=== PATIENT | female | born 1990 | race Caucasian/White ===

== ENCOUNTER 2017-05-16 18:43 | Emergency (ER) | payer MEDICAID ==
[2017-05-16 19:00] LABS: URINE APPEARANCE CLEAR; URINE BILIRUBIN NEGATIVE (NEGATIVE); URINE BLOOD NEGATIVE (NEGATIVE); URINE COLOR YELLOW; URINE GLUCOSE (UA) NEGATIVE (NEGATIVE); URINE KETONE NEGATIVE (NEGATIVE); URINE LEUKOCYTE ESTERASE TRACE (NEGATIVE); URINE NITRITE NEGATIVE (NEGATIVE); URINE PROTEIN NEGATIVE (NEGATIVE); URINE UROBILINOGEN 0.2 E.U./dL (0.20 - 1.00)
[2017-05-16] MEDS ORDERED: HYOSCYAMINE SULFATE ODT 0.125 MG TAB.SUBL SL ONE (19:00)
[2017-05-16] MEDS ORDERED: MAGNESIUM HYDROXIDE/AL HYDROX 30 ML, LIDOCAINE VISC 2% 200 MG PO ONE ×2 (19:00)
--- NOTE | 2017-05-16 19:05 | Emergency Department Record ---
History of Present Illness - General Chief Complaint: Abdominal Pain Stated Complaint: ABD PAIN Time Seen by Provider: 05/16/17 18:47 Source: Patient Mode of Arrival: Ambulatory Limitations: No limitations - History of Present Illness Initial Comments: 27 yo female presents to ED with a CC of epigastric abdominal pain that began approximately 24 hours ago. Patient reports that her symptoms have been intermittent, denies nausea or vomiting symptoms. Patent reports a history of similar symptoms previously without known etiology. Patient denies fevers, chills, or urinary symptoms. Patient reports that she is s/p rashida and c- section x 2. MD Complaint: Abdominal pain Onset/Timin -: Hour(s) Location: Epigastric, Periumbilical, RUQ Radiation: None Severity: Moderate Quality: Sharp, Stabbing Consistency: Intermittent Improves With: Other Worsens With: Nothing Associated Symptoms: Nausea - Related Data Allergies Allergy/AdvReac Type Severity Reaction Status Date / Time NO KNOWN DRUG ALLERGY Allergy Uncoded 11/28/13 10:05 Travel Screening - Travel/Exposure Within Last 30 Days Have you traveled within the last 30 days?: No - Travel/Exposure Within Last Year Have you traveled outside the [place] in the last year?: No - Additonal Travel Details Have you been exposed to anyone with a communicable illness?: No - Travel Symptoms Symptom Screening: None Review of Systems Constitutional: Denies: Chills, Fever, Malaise, Night sweats Eyes: Denies: Eye discharge, Eye pain ENT: Denies: Congestion, Ear pain, Epistaxis Respiratory: Denies: Cough, Dyspnea Cardiovascular: Denies: Chest pain, Dyspnea on exertion Endocrine: Denies: Fatigue, Heat or cold intolerance Gastrointestinal: Reports: Abdominal pain. Denies: Constipation, Nausea, Vomiting Genitourinary: Denies: Incontinence, Retention Musculoskeletal: Denies: Arthralgia, Back pain, Gout, Joint swelling Skin: Denies: Bruising, Change in color Neurological: Denies: Abnormal gait, Confusion, Headache, Seizure Psychiatric: Denies: Anxiety Hematological/Lymphatic: Denies: Anemia, Blood Clots Past Medical History - SOCIAL HISTORY Smoking Status: Light tobacco smoker (<10/day) Alcohol Use: None Drug Use: None - RESPIRATORY Hx Respiratory Disorders: No - CARDIOVASCULAR Hx Cardio Disorders: No - NEURO Hx Neuro Disorders: No - GI Hx GI Disorders: Yes Hx Reflux: Yes - Hx Genitourinary Disorders: Yes Hx UTI: Yes - ENDOCRINE Hx Endocrine Disorders: No Hx Diabetes: No Hx Thyroid Disease: No - MUSCULOSKELETAL Hx Musculoskeletal Disorders: No - PSYCH Hx Psych Problems: Yes Hx Anxiety: Yes Hx Depression: Yes - HEMATOLOGY/ONCOLOGY Hx Hematology/Oncology Disorders: No Family Medical History Any Significant Family History?: No Hx Cancer: Grandparents Physical Exam - General General Appearance: Alert, Oriented x3, Cooperative, Moderate distress Limitations: No limitations - Head Head exam: Atraumatic, Normocephalic, Normal inspection Head exam detail: negative: Abrasion, Contusion, Cleveland's sign, General tenderness, Hematoma, Laceration - Eye Eye exam: Normal appearance. negative: Conjunctival injection, Periorbital swelling, Periorbital tenderness, Scleral icterus - ENT Ear exam: negative: Auricular hematoma, Auricular trauma Nasal Exam: negative: Active bleeding, Discharge, Dried blood, Foreign body Mouth exam: negative: Drooling, Laceration, Tongue elevation - Neck Neck exam: Normal inspection. negative: Meningismus, Tenderness - Respiratory Respiratory exam: Normal lung sounds bilaterally. negative: Rales, Respiratory distress, Rhonchi, Stridor - Cardiovascular Cardiovascular Exam: Regular rate, Normal rhythm, Normal heart sounds - GI/Abdominal GI/Abdominal exam: Soft, Tenderness (Mild TTP RUQ, no pain to the epigastric or lower quadrants on examination, no rebound or guarding present.). negative: Rebound, Rigid - Rectal Rectal exam: Deferred - exam: Deferred - Extremities Extremities exam: Normal inspection. negative: Calf tenderness, Pedal edema, Tenderness - Back Back exam: Denies: CVA tenderness (R), CVA tenderness (L) - Neurological Neurological exam: Alert, Normal gait, Oriented X3 - Psychiatric Psychiatric exam: Normal affect, Normal mood - Skin Skin exam: Normal color. negative: Abrasion Type of lesion: negative: abrasion Course Vital Signs 05/16/17 05/16/17 18:45 18:52 Temperature 98.4 F Pulse Rate 89 Respiratory 24 Rate Blood Pressure 118/68 [Left Arm] Pulse Ox 96 - Reevaluation(s) Reevaluation #1: 05/16/17 19:38 Laboratory reviewed, WBC 13.5, 3+ Bacteria in the urine. Labs are otherwise grossly unremarkable for an acute process. Patient re-evaluated, reports that her symptoms are not improved following GI cocktail and Levsin, will image for any acute process. Patient agrees with the plan as discussed. Reevaluation #2: 05/16/17 20:50 CT Abdomen and Pelvis: Lymphadenitis in the mesentery with fat stranding in the region of the appendix, appendix is normal in size, no appendocolith or martha- appendicocoele fluid collection is present. Dr Hinton paged for surgical consultation. Reevaluation #3: 05/16/17 21:11 Case was discussed with Dr. Panchal and Dr. Parker, will accept transfer to [facility] ED for surgical evaluation. Medical Decision Making - Lab Data Result diagrams: 05/16/17 19:05 05/16/17 19:05 Disposition Disposition: Transfer Clinical Impression: Epigastric abdominal pain Disposition: Acute Care Hospital Transfer Transfer To: [facility] Reason For Transfer: Surgical evaluation Accepting Physician: Elena Panchal Time Discussed w/Accepting Physician: 21:13 Condition: (2) Stable Forms: Patient Portal Access Time of Disposition: 21:13 Quality - Quality Measures Quality Measures: N/A - Blood Pressure Screening Does Patient Have Any of the Following: No Blood Pressure Classification: Normal BP Reading Systolic Measurement: 114 Diastolic Measurement: 69 Screening for High Blood Pressure: < Normal BP, F/U Not Required > [G8783]
[2017-05-16 19:11] LABS: URINE RBC NONE SEEN (NONE SEEN)
[2017-05-16 19:12] LABS: HCG,QUALITATIVE URINE NEGATIVE (NEGATIVE); URINE BACTERIA 3+
[2017-05-16 19:12] LABS: BASO % 0.2 % (0-6); EOS % 3.1 % (0-6); GRAN % 70.7 % (47-80); HEMATOCRIT 38.6 % (35.0-47.0); LYMPH % 19.5 % (16-45); MEAN CELL VOLUME 86.5 fl (81-97); MEAN CORPUSCULAR HEMOGLOBIN 29.1 pg (27-33); MEAN CORPUSCULAR HGB CONC 33.7 g/dl (32-36); MEAN PLATELET VOLUME 10.2 fl (7.4-10.4); MONO % 6.5 % (0-9); PLATELET COUNT 261 K/uL (130-400); RED BLOOD COUNT 4.46 M/uL (3.80-5.40); RED CELL DISTRIBUTION WIDTH 13.1 % (11.5-14.5); WHITE BLOOD COUNT W/O DIFF 13.5 K/uL (4.2-12.2)
[2017-05-16 19:31] LABS: ALB/GLOB RATIO 1.5 (1.1-1.8); ALBUMIN 4.3 g/dL (4.0-5.0); ALKALINE PHOSPHATASE 61 U/L (35-104); ALT/SGPT 22 U/L (<33); AST/SGOT 22 U/L (10.0-35.0); BLOOD UREA NITROGEN 15 mg/dL (6-20); CREATININE 0.6 mg/dL (0.5-0.9); EST GLOMERULAR FILTRATION RATE > 60 mL/min; GLUCOSE,RANDOM 139 mg/dL (74-109); LIPASE 25 U/L (13-60); TOTAL PROTEIN 7.1 g/dL (6.6-8.7)
[2017-05-16] MEDS ORDERED: KETOROLAC 30 MG/ML VIAL IVP ONE (19:43)
--- NOTE | 2017-05-18 08:16 | CT SCAN REPORT ---
EXAM: CT SCAN OF THE ABDOMEN AND PELVIS HISTORY: GENERALIZED ABDOMINAL PAIN. TECHNIQUE: Serial axial CT scan of the abdomen and pelvis was performed at 3.75 mm intervals from the dome of the diaphragm down to the pubic symphysis following the intravenous administration of 100 ml of Omnipaque 300. Comparison: CT scan of the abdomen and pelvis dated 10/26/13 is provided. FINDINGS: The lung windows of the lung bases demonstrate no CT evidence of a focal infiltrate or pleural effusion. Calcified granuloma at the left posterior costophrenic angle is stable with respect to the prior CT scan. The visualized heart size and contour is within normal limits. The liver, spleen, pancreas, and bilateral adrenal glands are unremarkable. The gallbladder is not visualized. The contour, caliber, and flow within the abdominal aorta is within normal limits. There is no CT evidence of retroperitoneal lymphadenopathy. Multiple subcentimeter lymph nodes are identified within the mesentery, particularly at the mesenteric root. Subtle mesenteric fat stranding is also noted. These findings may represent lymphadenitis and/or mesenteric panniculitis. Clinical correlation is recommended. The bowel gas pattern is nonobstructive. The appendix is clearly visualized. The contour and size of the appendix appears within normal limits. No obvious periappendiceal fluid collections are identified. There is fat stranding surrounding the appendix, however, this may be related to the generalized fat stranding within the mesentery. Subtle appendicitis cannot be entirely excluded. Clinical correlation is recommended. The urinary bladder and uterus are unremarkable. Bone windows demonstrate no CT evidence of a fracture or dislocation of the visualized osseous structures. IMPRESSION: 1. MULTIPLE PROMINENT LYMPH NODES ARE IDENTIFIED WITHIN THE MESENTERY DISCUSSED ABOVE. DIFFERENTIAL CONSIDERATIONS INCLUDE MESENTERIC PANNICULITIS AND/OR LYMPHADENITIS. CLINICAL CORRELATION IS RECOMMENDED. 2. ALTHOUGH THERE IS FAT STRANDING SURROUNDING THE APPENDIX, THE CONTOUR AND SIZE OF THE APPENDIX APPEAR UNREMARKABLE. THE FAT STRANDING SURROUNDING THE APPENDIX MAY BE RELATED TO THE GENERALIZED MESENTERIC PANNICULITIS AND/OR LYMPHADENITIS, HOWEVER, SUBTLE APPENDICITIS CANNOT BE ENTIRELY EXCLUDED. CLINICAL CORRELATION IS RECOMMENDED. JOB NUMBER: [id number] [facility]
== END 2017-05-16 21:32 | disposition short-term general hospital (02) ==
LOC: ER 18:43
DX: R10.13 Epigastric pain (principal); R11.0 Nausea; R82.71 Bacteriuria
CPT/HCPCS: 99285 ×2; 96374; 83690; 85025; 80053; 81001; 81025; 74177; Q9967; J1980; J1885

== ENCOUNTER 2018-06-15 10:02 | Emergency (ER) | payer MEDICAID ==
--- NOTE | 2018-06-15 10:07 | Emergency Department Record ---
History of Present Illness - General Chief complaint: ENT Stated complaint: SORE THROAT Time Seen by Provider: 06/15/18 10:05 Source: Patient Mode of Arrival: Ambulatory - History of Present Illness Initial comments: Pt relates one week of sore throat, fevers, and body aches. "I feel so tired all the time". No nausea or vomiting. No cough or DONTRELL. No AP or urinary complaints. Seen yesterday at urgent care and had neg strep screen. "The back of my throat and uvula feels like it is burning and swollen". MD complaint: Sore throat Onset/Timin -: Week(s) Location: Throat Severity: Moderate Severity scale (1-10): 6 Quality: Burning Consistency: Constant Associated Symptoms: Fever, Pain with swallowing, Sore throat - Related Data Allergies Allergy/AdvReac Type Severity Reaction Status Date / Time amoxicillin AdvReac uti Unverified 02/18/18 08:46 symptoms Review of Systems Constitutional: Reports: Fever, Malaise. Denies: Chills, Weakness Eyes: Denies: Eye discharge, Eye pain ENT: Reports: Throat pain. Denies: Congestion, Dental pain Respiratory: Denies: Cough, Dyspnea Cardiovascular: Denies: Arrhythmia, Chest pain Endocrine: Denies: Fatigue Gastrointestinal: Denies: Abdominal pain, Nausea, Vomiting Genitourinary: Denies: Abnormal menses Skin: Denies: Bruising, Rash Neurological: Denies: Abnormal gait, Numbness, Tingling Psychiatric: Denies: Anxiety Hematological/Lymphatic: Denies: Anemia Past Medical History - SOCIAL HISTORY Smoking Status: Light tobacco smoker (<10/day) Drug Use: None - RESPIRATORY Hx Respiratory Disorders: No - CARDIOVASCULAR Hx Cardio Disorders: No - NEURO Hx Neuro Disorders: No - GI Hx GI Disorders: Yes Hx Reflux: Yes - Hx Genitourinary Disorders: Yes Hx UTI: Yes - ENDOCRINE Hx Endocrine Disorders: No Hx Diabetes: No Hx Thyroid Disease: No - MUSCULOSKELETAL Hx Musculoskeletal Disorders: No - PSYCH Hx Psych Problems: Yes Hx Anxiety: Yes Hx Depression: Yes - HEMATOLOGY/ONCOLOGY Hx Hematology/Oncology Disorders: No Family Medical History Hx Cancer: Grandparents Physical Exam - General General Appearance: Alert, Oriented x3, Cooperative, Mild distress - Head Head exam: Atraumatic - Eye Eye exam: PERRL, EOMI. negative: Nystagmus - ENT ENT exam: Mucous membranes moist, Normal external ear exam, TM's normal bilaterally Nasal Exam: Normal inspection. negative: Sinus tenderness Mouth exam: negative: Muffled voice, Tongue elevation Teeth exam: Normal inspection Throat exam: Other (post pharynx is erythematous with pettechia and uvula is slightly swollen. Airway is patent. ). negative: R peritonsillar mass, L peritonsillar mass - Neck Neck exam: Normal inspection, Full ROM. negative: Lymphadenopathy - Respiratory Respiratory exam: Normal lung sounds bilaterally. negative: Rhonchi, Wheezes - Cardiovascular Cardiovascular Exam: Regular rate, Normal rhythm, Normal heart sounds - GI/Abdominal GI/Abdominal exam: Soft, Normal bowel sounds. negative: Distended, Guarding, Tenderness - Extremities Extremities exam: Normal inspection, Full ROM. negative: Tenderness - Back Back exam: Reports: Normal inspection - Neurological Neurological exam: Alert, Normal gait, Oriented X3. negative: Motor sensory deficit - Psychiatric Psychiatric exam: Normal affect, Normal mood - Skin Skin exam: Normal color. negative: Rash Course - Reevaluation(s) Reevaluation #1: 06/15/18 10:20 Kids with similar. Neg strep screen yesterday. Will check strep, flu, and mono Medical Decision Making - Lab Data Result diagrams: 06/15/18 10:22 Disposition Disposition: Discharge Clinical Impression: Pharyngitis Disposition: Home, Self-Care Condition: (1) Good Instructions: Pharyngitis (ED) Additional Instructions: Fluids and rest. NO Motrin or non steroidal meds for 4 days. Use tylenol for fever or pain. Return to the ED as needed. Forms: Patient Portal Access Quality - Quality Measures Quality Measures: N/A - Blood Pressure Screening Does Patient Have Any of the Following: No Blood Pressure Classification: Pre-Hypertensive BP Reading Systolic Measurement: 117 Diastolic Measurement: 80 Screening for High Blood Pressure: < Pre-Hypertensive BP, F/U Documented > [ G8950] Pre-Hypertensive Follow-up Interventions: Follow-up with rescreen every year.
[2018-06-15 10:33] LABS: BASO % 0.3 % (0-6); EOS % 3.6 % (0-6); GRAN % 52.7 % (47-80); HEMATOCRIT 39.5 % (35.0-47.0); HEMOGLOBIN 12.8 gm/dl (11.6-16.0); LYMPH % 32.8 % (16-45); MEAN CORPUSCULAR HEMOGLOBIN 29.2 pg (27-33); MEAN CORPUSCULAR HGB CONC 32.4 g/dl (32-36); MEAN PLATELET VOLUME 9.7 fl (7.4-10.4); MONO % 10.6 % (0-9); PLATELET COUNT 273 K/uL (130-400); RED BLOOD COUNT 4.39 M/uL (3.80-5.40); RED CELL DISTRIBUTION WIDTH 13.4 % (11.5-14.5); WHITE BLOOD COUNT W/O DIFF 6.6 K/uL (4.2-12.2)
[2018-06-15 10:37] LABS: STREP A SCREEN NEGATIVE (NEGATIVE)
[2018-06-15 10:44] LABS: INFLUENZA A NEGATIVE (NEGATIVE); INFLUENZA B NEGATIVE (NEGATIVE)
[2018-06-15] MEDS ORDERED: DEXAMETHASONE 4 MG/ML 1ML VIAL PO ONE (10:47)
== END 2018-06-15 11:00 | disposition home or self-care (01) ==
LOC: ER 10:02
DX: J02.9 Acute pharyngitis, unspecified (principal); K13.79 Other lesions of oral mucosa; R51 Headache; F17.210 Nicotine dependence, cigarettes, uncomplicated
CPT/HCPCS: 85027; 86308; 87400; 87880; 99283

== ENCOUNTER 2019-01-03 12:09 | Emergency (ER) | payer MEDICAID ==
[2019-01-03] MEDS ORDERED: ACETAMINOPHEN 1,000 MG/100 ML BTL IVPB ONE (12:34)
--- NOTE | 2019-01-03 12:35 | Emergency Department Record ---
History of Present Illness - General Chief Complaint: Chest Pain Stated Complaint: CHEST PAIN Time Seen by Provider: 01/03/19 12:15 Source: Patient Mode of Arrival: Ambulatory Limitations: No limitations - History of Present Illness Initial Comments: The patient is here due to L upper CP for the last hour. She describes the pain as sharp and stabbing and it is non-radiating. There is no SOB, DONTRELL, sweating, or nausea with the pain. She did feel warm all over when the pain started and she had to go outside and sit on the curb with her head between her legs. Presently the pain is almost gone and the patient states the onset was at rest. She has no hx of similar issues and denies any hx of CP with exertion or DRAPER. The patient's only cardiac risk factor is tobacco use. The patient does state she does a lot of lifting at work and may have pulled a muscle. MD Complaint: Chest pain Onset/Timin -: Minutes(s) Onset: During rest Pain Location: Substernal, Left chest Severity scale (1-10): 4 Quality: Other Consistency: Constant Treatments Prior to Arrival: None - Related Data Home Medications Medication Instructions Recorded Confirmed Last Taken Omeprazole 40 mg PO DAILY 01/03/19 01/03/19 01/03/19 Allergies Allergy/AdvReac Type Severity Reaction Status Date / Time amoxicillin AdvReac uti Verified 01/03/19 12:21 symptoms Travel Screening - Travel/Exposure Within Last 30 Days Have you traveled within the last 30 days?: No - Travel/Exposure Within Last Year Have you traveled outside the [place] in the last year?: No - Additonal Travel Details Have you been exposed to anyone with a communicable illness?: No Review of Systems Constitutional: Denies: Chills, Fever Eyes: Denies: Eye discharge ENT: Denies: Congestion Respiratory: Denies: Dyspnea Cardiovascular: Reports: Chest pain Endocrine: Denies: Fatigue Gastrointestinal: Denies: Nausea Genitourinary: Denies: Dysuria Musculoskeletal: Denies: Arthralgia Neurological: Denies: Abnormal gait Past Medical History - SOCIAL HISTORY Smoking Status: Light tobacco smoker (<10/day) Alcohol Use: Rare Drug Use: None - RESPIRATORY Hx Respiratory Disorders: No - CARDIOVASCULAR Hx Cardio Disorders: No - NEURO Hx Neuro Disorders: No - GI Hx GI Disorders: Yes Hx Reflux: Yes - Hx Genitourinary Disorders: Yes Hx UTI: Yes - ENDOCRINE Hx Endocrine Disorders: No Hx Diabetes: No Hx Thyroid Disease: No - MUSCULOSKELETAL Hx Musculoskeletal Disorders: No - PSYCH Hx Psych Problems: Yes Hx Anxiety: Yes Hx Depression: Yes - HEMATOLOGY/ONCOLOGY Hx Hematology/Oncology Disorders: No Family Medical History Any Significant Family History?: No Hx Cancer: Grandparents Physical Exam - General General Appearance: Alert, Oriented x3, Cooperative, No acute distress - Head Head exam: Atraumatic, Normocephalic, Normal inspection - Eye Eye exam: Normal appearance, PERRL, EOMI - ENT Throat exam: Normal inspection. negative: Tonsillar erythema, Tonsillar exudate - Neck Neck exam: Normal inspection, Full ROM. negative: Tenderness - Respiratory Respiratory exam: Normal lung sounds bilaterally, Chest wall tenderness (The L upper CP is 100% reproducible to palpation of the L upper chest.), Other (The pain is 100% reproducible with any chest rotation or flexion.). negative: Respiratory distress - Cardiovascular Cardiovascular Exam: Regular rate, Normal rhythm, Normal heart sounds - GI/Abdominal GI/Abdominal exam: Soft, Normal bowel sounds, Tenderness (There is mild epigastric tenderness but that has been a chronic issues. The patient has an EGD scheduled in 2 days.). negative: Rebound, Rigid - Extremities Extremities exam: Normal inspection, Full ROM, Normal capillary refill. negative: Tenderness Image of Full Body: 1 - Area of pain and 100% reproducible tenderness. - Back Back exam: Reports: Normal inspection - Neurological Neurological exam: Alert, Normal gait. negative: Abnormal gait, Motor sensory deficit - Psychiatric Psychiatric exam: negative: Anxious Course Vital Signs 01/03/19 12:11 Temperature 97.7 F Pulse Rate 85 Respiratory 18 Rate Blood Pressure 122/81 Pulse Ox 100 - Reevaluation(s) Reevaluation #1: The patient is doing a lot better at this time. She was sleeping in the room when I went in. After waking her up she stated the pain is 90% improved. She still has the pain with any chest flexion or rotation or any chest palpation. I explained to her that is seems she has a pulled muscle over her chest wall and due to her upcoming EGD she is to take Tylenol for pain. 01/03/19 13:34 Medical Decision Making - Data Complexity MDM Data: Labs Ordered and/or Reviewed, X-Ray Ordered and/or Reviewed, EKG Ordered and/or Reviewed - Lab Data Result diagrams: 01/03/19 12:40 01/03/19 12:40 - EKG Data -: EKG Interpreted by Me EKG: No Acute Changes, Normal EKG (RSR" pattern. O/W neg.) - Radiology Data Radiology results: Report reviewed (CXR: Neg for any acute changes.) Disposition Disposition: Discharge Clinical Impression: Chest wall pain Disposition: Home, Self-Care Condition: (2) Stable Instructions: Chest Wall Pain (ED) Additional Instructions: Please continue your regular medicines and use TYlenol for pain. Please see your family doctor for recheck later this week. Return to the ER for any worsening symptoms. Forms: Patient Portal Access Time of Disposition: 13:36 Quality - Quality Measures Quality Measures: N/A - Blood Pressure Screening View Details: Yes Does Patient Have Any of the Following: No Blood Pressure Classification: Pre-Hypertensive BP Reading Systolic Measurement: 122 Diastolic Measurement: 81 Screening for High Blood Pressure: < Pre-Hypertensive BP, F/U Documented > [G8950] Pre-Hypertensive Follow-up Interventions: Referral to alternative/primary care provider.
[2019-01-03] MEDS ORDERED: SUCRALFATE 1 G/10 ML UD PO ONE (12:40)
[2019-01-03 12:50] LABS: ABSOLUTE NEUTROPHIL COUNT 2.11; BASO % 0.4 % (0-6); EOS % 4.7 % (0-6); GRAN % 39.6 % (47-80); HEMATOCRIT 39.4 % (35.0-47.0); HEMOGLOBIN 12.9 gm/dl (11.6-16.0); MEAN CELL VOLUME 92.5 fl (81-97); MEAN CORPUSCULAR HEMOGLOBIN 30.3 pg (27-33); MEAN CORPUSCULAR HGB CONC 32.7 g/dl (32-36); MEAN PLATELET VOLUME 9.9 fl (7.4-10.4); MONO % 10.3 % (0-9); PLATELET COUNT 268 K/uL (130-400); RED BLOOD COUNT 4.26 M/uL (3.80-5.40); RED CELL DISTRIBUTION WIDTH 13.8 % (11.5-14.5); WHITE BLOOD COUNT W/O DIFF 5.3 K/uL (4.2-12.2)
[2019-01-03 13:03] LABS: BLOOD UREA NITROGEN 13 mg/dL (6-20); CREATININE 0.5 mg/dL (0.5-0.9); EST GLOMERULAR FILTRATION RATE > 60 mL/min
[2019-01-03 13:04] LABS: TOTAL PROTEIN 6.8 g/dL (6.6-8.7)
[2019-01-03 13:06] LABS: GLUCOSE,RANDOM 101 mg/dL (74-109)
[2019-01-03 13:09] LABS: ALB/GLOB RATIO 1.8 (1.1-1.8); ALBUMIN 4.4 g/dL (4.0-5.0); ALKALINE PHOSPHATASE 46 U/L (35-104); ALT/SGPT 25 U/L (<33); AST/SGOT 19 U/L (10.0-35.0)
--- NOTE | 2019-01-04 07:39 | RADIOLOGY REPORT ---
EXAM: CHEST, TWO VIEWS HISTORY: SUDDEN ONSET OF LEFT SIDED CHEST PAIN. TECHNIQUE: Upright PA and lateral views of the chest were obtained. Comparison: Two view chest radiographic examination dated 11/30/18. FINDINGS: The heart is not grossly enlarged. No pulmonary venous hypertension is seen. The lungs and pleural spaces remain clear. There is again noted thoracolumbar scoliosis with dextroconvex curvature centered at the mid thoracic levels and levoconvex curvature centered at the thoracolumbar junction. Lund piercings are again noted at the anterior mid chest wall level. Metallic piercing jewelry is now noted in each nipple region. IMPRESSION: NO RADIOGRAPHIC EVIDENCE OF ACUTE CARDIOPULMONARY DISEASE. PIERCING JEWELRY, DISCUSSED ABOVE. JOB NUMBER: [id number] [facility] [place]
== END 2019-01-03 14:09 | disposition home or self-care (01) ==
LOC: ER 12:09
DX: R07.89 Other chest pain (principal); F17.210 Nicotine dependence, cigarettes, uncomplicated
CPT/HCPCS: 71046; 80053; 84703; 85025; 85379; 93005; 93010; 96374; 99284